=== PATIENT | male | born 1950 | race Caucasian/White ===

== ENCOUNTER 2017-06-27 11:46 | Day surgery (SDC) | payer BC ==
[2017-06-27] MEDS ORDERED: LIDOCAINE 2% MDV (20MG/ML) 20ML VIAL IV ONE (11:47)
[2017-06-27] MEDS ORDERED: PROPOFOL 10 MG/ML VIAL IV ONE (11:47)
--- NOTE | 2017-06-28 12:31 | Operative Note ---
DATE OF SURGERY: 06/27/2017 OPERATION: ESOPHAGOGASTRODUODENOSCOPY. INDICATION: Mild anemia. Patient with infrequent pyrosis. Rule out upper GI tract source of potential blood loss. The patient also had a positive Cologuard test and will also undergo colonoscopy at this time. ANESTHESIA: Intravenous sedation was administered by the department of anesthesiology and included Diprivan titrated to effect. PROCEDURE: Following informed consent from this alert individual, including a discussion of the risks and benefits of the procedure and an opportunity for the patient to ask questions, the patient was in the left lateral decubitus position. The Olympus [id number] video endoscope was inserted into the esophagus without resistance. The proximal esophagus had a normal appearance with normal folds and distensibility. The mid esophagus likewise was free from changes. The distal esophageal segment demonstrated a Schatzki ring which was large bore in diameter. The stomach was then entered. There was a small hiatal hernia encountered which was free from mucosal changes. The stomach appeared endoscopically unremarkable. Pylorus was patent. The duodenal bulb, sweep and descending duodenum were examined in a serial fashion and found to be normal. The endoscope was then withdrawn back into the body of the stomach. Retroflexion accomplished following air insufflation again revealed a small hiatal hernia. The endoscope was then straightened and withdrawn back through the Schatzki ring and esophagus and removed from the patient. The patient tolerated the procedure well and was returned to the recovery area in stable condition. IMPRESSION: 1. Large-bore Schatzki ring. 2. Small hiatal hernia. 3. Otherwise unremarkable esophagogastroduodenoscopy. RECOMMENDATION: The patient will undergo colonoscopy at this time. He will follow up with Chadwick Archer DO. If he should developed any dysphagia in the future, repeat endoscopy with possible dilatation can be completed. As always, thank you for allowing me to participate in the care of your patient. CC: DO BRENNAN Mart
--- NOTE | 2017-06-28 12:31 | Operative Note ---
DATE OF SURGERY: 06/27/2017 OPERATION: COLONOSCOPY to the cecum and terminal ileum with multiple biopsies. INDICATION: Positive Cologuard test. HISTORY: This is the patient's first colonoscopy. He had a positive Cologuard test at primary care physician's office. Colonoscopy is performed at this time for evaluation. ANESTHESIA: Intravenous sedation was administered by the department of anesthesiology and included Diprivan titrated to effect. PROCEDURE: Following informed consent from this alert individual including a discussion of the risks and benefits of the procedure and an opportunity for the patient to ask questions, the patient was in the left lateral decubitus position. A digital rectal examination was performed. No abnormalities were noted. The prostate had been surgically removed. Following this, the Olympus [id number] video colonoscope was inserted into the rectum without resistance. The rectal mucosa had a normal appearance with normal folds and distensibility. The colonoscope was advanced easily to the level of the cecum. There were a few scattered diverticula noted in the ascending colon and diverticulosis noted in the left colon as well. No other mucosal changes were appreciated. The colon preparation was good. The cecum was well defined by noting the appendiceal orifice and the ileocecal valve. The terminal ileum was cannulated and found to be unremarkable. The ileocecal valve was somewhat prominent and erythematous and for this reason, biopsies of it were taken. It was soft and fleshy when biopsied. From this point, the colonoscope was withdrawn. Again diverticulosis was apparent in the left and right colon but no other mucosal changes were appreciated until the rectum was reached. 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 There was no bleeding noted. The endoscope was straightened and removed. The patient tolerated the procedure well and was returned to the recovery area in stable condition. IMPRESSION: 1. Normal terminal ileum. 2. Prominent ileocecal valve. Biopsies taken. 3. Diverticulosis involving the right and left colon. 4. Small internal hemorrhoids. 5. 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 RECOMMENDATIONS: I advised the patient to have recheck colonoscopy in 10 years' time or sooner should problems arise. The biopsies are pending but again most likely represent a prominent ileocecal valve. Followup will also be with Chadwick Archer DO. As always, thank you for allowing me to participate in the care of your patient. CC: DO BRENNAN Mart
== END 2017-06-27 14:35 | disposition home or self-care (01) ==
LOC: HOP 11:46
PROVIDERS: ATTEND Internal Medicine Gastroenterology
DX: R19.5 Other fecal abnormalities (principal); K57.30 Diverticulosis of large intestine without perforation or abscess without bleeding; K44.9 Diaphragmatic hernia without obstruction or gangrene; K62.7 Radiation proctitis; K22.2 Esophageal obstruction; D64.9 Anemia, unspecified; K64.8 Other hemorrhoids; I10 Essential (primary) hypertension; E78.00 Pure hypercholesterolemia, unspecified